=== PATIENT | female | born 1950 | race Caucasian/White ===

== ENCOUNTER 2016-08-02 05:57 | Day surgery (SDC) | payer OTHER, MEDICARE ==
[2016-07-30 10:22] VITALS: BMI 36.1
[2016-08-02] MEDS ORDERED: ePHEDrine SULFATE 50 MG/1 ML AMPULE ONE (07:16)
[2016-08-02] MEDS ORDERED: MIDAZOLAM HCL 2 MG/2 ML SINGLE DOSE VIAL ONE (07:17)
[2016-08-02] MEDS ORDERED: PROPOFOL 20 ML ONE ×2 (07:17)
[2016-08-02] MEDS ORDERED: ROCURONIUM BROMIDE 50 MG/5 ML VIAL ONE ×2 (07:17)
[2016-08-02] MEDS ORDERED: ceFAZolin SODIUM 1 GM VIAL ONE (07:22)
[2016-08-02] MEDS ORDERED: LIDOCAINE HCL 1%, 10 MG/ML (20ML VIAL) ONE (07:23)
[2016-08-02] MEDS ORDERED: BACITRACIN 30 GM TUBE TOPICAL OINTMENT ONE (07:23)
[2016-08-02] MEDS ORDERED: GENTAMICIN SO4 80 MG/2 ML VIAL ONE (07:23)
[2016-08-02] MEDS ORDERED: LIDOCAINE 1%-EPI 1:100,000 30 ML MDV IJ ONE (07:23)
[2016-08-02] MEDS ORDERED: EPINEPHrine/PF 1 MG/1 ML (1:1,000) AMPULE ONE (07:24)
[2016-08-02] MEDS ORDERED: GUM MASTIC/STORAX/MSAL/ALCOHOL 1 DRP DROPSBTL MC ONE (07:24)
[2016-08-02] MEDS ORDERED: HEPARIN NA (PORCINE) 5,000 UNITS/ML 1ML VIAL ONE (07:29)
[2016-08-02] MEDS ORDERED: SCOPOLAMINE HYDROBROMIDE 1 PATCH PATCH.TD72 ONE (07:29)
[2016-08-02] MEDS ORDERED: LIDOCAINE 1%/EPI 1:100000 (50 ML MULTI DOSE VIAL) INF ONE (08:25)
[2016-08-02] MEDS ORDERED: PROMETHAZINE HCL 25 MG/1 ML VIAL IVPUSH PRN (09:01)
[2016-08-02] MEDS ORDERED: ONDANSETRON 4 MG/2 ML VIAL IVPUSH PRN (09:01)
[2016-08-02] MEDS ORDERED: oxyCODONE HCL 5 MG TABLET PO PRN (09:01)
[2016-08-02] MEDS ORDERED: LACTATED RINGERS SOLUTION 1,000 ML IV SCH (09:15)
[2016-08-02] MEDS ORDERED: HYDROmorphone HCL/PF 1 MG/ML VIAL (FOR PYXIS CHARGING ONLY) ONE (09:26)
[2016-08-02] MEDS ORDERED: NEOSTIGMINE METHYLSULFATE 0.5 MG/ML - 10 ML MDV ONE (09:42)
--- NOTE | 2016-08-02 09:56 | OP ---
Operative Note - Note: Operative Date: 08/02/16 Pre-Operative Diagnosis: hx of right breast cancer Operation: right breast tissue lab director removal, right breast implant placement , bilateral breast reconstruction revision with subcutaneous tissue transfer, and left breast capsulorrophy Implants: Silicone implant on right breast Post-Operative Diagnosis: Same as Pre-op Surgeon: Cleveland Hernandez Delicatessen Slicer: Momo Bess Anesthesia: General Specimens Removed: right breast tissue lab director Estimated Blood Loss (mls): 50 Drains & Tubes with Location: none
[2016-08-02 11:44] VITALS: TEMP 98.2
[2016-08-02] MEDS ORDERED: ACETAMINOPHEN INJECTION 100 ML IVPB ONE (11:45)
[2016-08-02 12:48] VITALS: BP 137/72; PULSE 96
[2016-08-02] MEDS ORDERED: ACETAMINOPHEN 1000 MG/100 ML VIAL (NON FORMULARY) IVPB ONE (12:53)
--- NOTE | 2016-08-02 16:42 | OP ---
DATE OF OPERATION: 08/02/2016 SURGEON: Rosie Hernandez MD HAND COPER: JORDANA Rubin PREOPERATIVE DIAGNOSIS: Bilateral acquired chest wall deformity status post bilateral mastectomy. POSTOPERATIVE DIAGNOSIS: Bilateral acquired chest wall deformity status post bilateral mastectomy. OPERATIVE PROCEDURE: 1. Right breast reconstruction with other technique. 2. Left breast reconstruction with other technique. 3. Capsulotomy, removal of right breast implant. 4. Placement of reconstructive right breast implant. 5. Left breast revision with capsulorraphy. OPERATIVE INDICATIONS: The patient is a woman who underwent bilateral mastectomy with cancer of the breast. The risks and benefits surgical versus nonsurgical, alternatives as well as the material complications of the procedures above were discussed with the patient on multiple occasions. She agreed to the planned procedure. OPERATIVE PROCEDURE IN DETAIL: The patient was taken to the operating room, and after induction of general anesthesia in supine position, both arms were extended and padded. Venodyne boots were placed. The patient had a history of clotting and was given 5000 units of subcutaneous heparin in the holding area preoperatively. After prepping and draping in the usual fashion for breast surgery and reconstruction, attention was turned to the mastectomy scars. The mastectomy scars were injected with 1% local lidocaine anesthesia with 1:100,000 epinephrine and then after allowing topical anesthesia and hemostasis, attention was turned to the incision. An incision was made in the right breast scar towards the axilla in order to avoid the central portion of the breast from the primary mastectomy. This incision was made through the skin down through the subcutaneous tissues into the deep tissues of the lateral chest wall. Upon opening the lateral chest wall, the lateral portion of the right breast pocket was visualized. The capsule was seen and then I performed a capsulotomy opening the capsule and removing the implant. This implant was sent for pathologic diagnosis. At this point, attention was turned to the opposite breast. An incision was made in the left breast mastectomy scar. After the incision was made in the left breast mastectomy scar, it was carried down through the skin to the subcutaneous tissues down to underlying capsule of the implant on the left side. I then performed a capsulotomy on the left breast opening the capsule itself and retracting the implant, which had been placed to the medial side. Because of the implant malposition, the lateral portion of the capsule required capsulorraphy. After 1% local lidocaine anesthesia was injected into the capsule on the lateral gutter using a No. 1 V-Lock suture in nonabsorbable running fashion, a capsulorraphy was carried out tacking the lateral portion of the gutter to itself on the chest wall. This was carried out in 3 layer fashion up and down the lateral gutter and closed off the lateral pocket. Copious irrigation of the deep pocket with triple antibiotic solution keeping the implant in place was carried out. Good shape and contour was seen in a sitting position, and at this point, the capsule was closed using 2-0 PDS sutures in interrupted fashion on the left breast. The abdomen flank region, which had been prepped and draped preoperatively, was now injected with 1% local lidocaine anesthesia, and attention was turned to the incision. Incision was made into the lateral flank and abdominal wall down through the subcutaneous tissue to the deepest layer above the fascia. Tissue was then harvested from both sides of the flank area for reconstructive purposes. The tissue was transferred to the back table, prepared, washed, cleansed, and ready for reconstructive purposes. The tissue was then placed into the central, superior, medial, inferior, and lateral portions of the right breast and then independently placed into the medial, superior portions of the left breast. After this was accomplished, the wounds were copiously irrigated on the right breast with triple antibiotic solution and a Natrelle Inspira 450-mL silicone gel implant in order to match the opposite breast was placed into the right breast pocket. This was placed using the Goodman funnel and showed good shape and contour, again, in the sitting position. The wound was then closed with interrupted 2-0 PDS sutures in a watertight fashion. Skin and subcutaneous tissue was closed independently with 2-0 PDS, 3-0 PDS, and 4-0 V-Lock suture in a running fashion. All wounds were dressed sterilely with Dermabond because of the tape allergy, and fluff dressing, combines, and a Surgi-Bra. She tolerated the procedure well. She was awakened, extubated, and transferred to the recovery room in satisfactory condition. ROSIE HERNANDEZ M.D. [id number]
--- NOTE | 2016-08-03 16:29 | PATH ---
Surgical Pathology Report Patient Name: JESIKA ALANIS Med. Rec. #: [id number] /Age/Gender: 1950 (Age: 66) / F Account: [id number] Location: [facility] Taken: 08/02/2016 Received: 08/02/2016 Reported: 08/03/2016 Physicians: Cleveland Hernandez Specimen(s) Received RIGHT BREAST TISSUE STRAWHAT BLOCKING OPERATOR Clinical History Breast cancer Final Diagnosis TISSUE STRAWHAT BLOCKING OPERATOR, RIGHT BREAST, REMOVAL: TISSUE STRAWHAT BLOCKING OPERATOR, DESCRIBED (GROSS EXAMINATION ONLY). Electronically Signed Mera Arcos M.D. Gross Description Received in formalin, labeled "right breast tissue oxygen equipment preparer," is a 14.0 x 12.0 x 3.0 cm zheng, irregular device, consistent with a breast tissue oxygen equipment preparer. No soft tissue is present. No sections are submitted, gross only. /08/02/2016 saudi08/02/2016
== END 2016-08-02 12:40 | disposition home or self-care (01) ==
LOC: FASU 05:57
PROVIDERS: ATTEND Plastic Surgery
PROC: 0HRT0JZ Replacement of Right Breast with Synthetic Substitute, Open Approach (ICD-10-PCS; 2016-08-02)
PROC: 0HRV07Z Replacement of Bilateral Breast with Autologous Tissue Substitute, Open Approach (ICD-10-PCS; principal; 2016-08-02 08:25)
PROC: 0HNU0ZZ Release Left Breast, Open Approach (ICD-10-PCS; 2016-08-02 08:25)
PROC: 0HPT0JZ Removal of Synthetic Substitute from Right Breast, Open Approach (ICD-10-PCS; 2016-08-02 08:25)
DX: M95.4 Acquired deformity of chest and rib (principal); Z90.13 Acquired absence of bilateral breasts and nipples; Z85.3 Personal history of malignant neoplasm of breast
CPT/HCPCS: 88300-TC; J1644

== ENCOUNTER 2017-03-07 06:04 | Day surgery (SDC) | payer OTHER, MEDICARE ==
[2017-03-05 16:47] VITALS: BMI 36.8
[2017-03-07] MEDS ORDERED: PROPOFOL 20 ML ONE ×2 (07:24)
[2017-03-07] MEDS ORDERED: ePHEDrine SULFATE 50 MG/1 ML AMPULE ONE (07:24)
[2017-03-07] MEDS ORDERED: SUCCINYLCHOLINE CHLORIDE 200 MG/10 ML VIAL ONE (07:24)
[2017-03-07] MEDS ORDERED: MIDAZOLAM HCL 2 MG/2 ML SINGLE DOSE VIAL ONE (07:25)
[2017-03-07] MEDS ORDERED: LIDOCAINE HCL 1%, 10 MG/ML (20ML VIAL) ONE (07:33)
[2017-03-07] MEDS ORDERED: BUPIVACAINE HCL/PF 2.5 MG/ML - 30 ML VIAL IJ ONE (07:33)
[2017-03-07] MEDS ORDERED: GENTAMICIN SO4 80 MG/2 ML VIAL ONE (07:34)
[2017-03-07] MEDS ORDERED: EPINEPHrine/PF 1 MG/1 ML (1:1,000) AMPULE ONE (07:34)
[2017-03-07] MEDS ORDERED: CLINDAMYCIN PHOSPHATE 600 MG/4 ML VIAL ONE ×2 (07:35→08:11)
[2017-03-07] MEDS ORDERED: DEXAMETHASONE SOD PHOSPHATE 4 MG/1 ML VIAL ONE (08:11)
[2017-03-07] MEDS ORDERED: ONDANSETRON 4 MG/2 ML VIAL ONE (08:11)
[2017-03-07] MEDS ORDERED: LIDOCAINE 1%/EPI 1:100000 (20 ML MULTI DOSE VIAL) IJ ONE ×2 (08:22)
[2017-03-07] MEDS ORDERED: LIDOCAINE 1%/EPI 1:100000 (20 ML MULTI DOSE VIAL) ONE (08:24)
[2017-03-07] MEDS ORDERED: ONDANSETRON 4 MG/2 ML VIAL IVPUSH PRN (10:03)
[2017-03-07] MEDS ORDERED: PROMETHAZINE HCL 25 MG/1 ML VIAL IVPUSH PRN (10:03)
[2017-03-07] MEDS ORDERED: LACTATED RINGERS SOLUTION 1,000 ML IV SCH (10:15)
[2017-03-07 12:03] VITALS: TEMP 97.9
[2017-03-07] MEDS ORDERED: oxyCODONE HCL 5 MG TABLET ONE (12:30)
[2017-03-07] MEDS ORDERED: oxyCODONE HCL 5 MG TABLET PO PRN (13:20)
[2017-03-07 13:31] VITALS: BP 147/88; PULSE 86
--- NOTE | 2017-03-08 13:23 | OP ---
DATE OF OPERATION: 03/07/2017 SURGEON: Rosie Hernandez MD LEARNING DEVELOPMENT SPECIALIST SURGEON: Momo Bess PA-C PREOPERATIVE DIAGNOSES: 1. Bilateral acquired chest wall deformities status post bilateral mastectomies. 2. Personal history of breast carcinoma. 3. Asymmetry of the reconstructed chest wall. 4. Mechanical complication of breast imlants. POSTOPERATIVE DIAGNOSES: 1. Bilateral acquired chest wall deformities status post bilateral mastectomies. 2. Personal history of breast carcinoma. 3. Asymmetry of the reconstructed chest wall. 4. Mechanical complication of breast imlants. OPERATIVE PROCEDURES: 1. Right breast reconstruction with other technique. 2. Left breast reconstruction with capsulorrhaphy and tissue rearrangement. 3. Right breast capsulotomy and implant removal. 4. Right breast placement of breast implant for reconstruction. OPERATIVE INDICATIONS: Patient is a woman who underwent bilateral mastectomy for breast cancer risks and reasons. The risks and benefits, surgical versus nonsurgical alternatives, as well as the material complications of this procedure were described to the patient on multiple occasions preoperatively. She agreed to the planned procedure. OPERATIVE PROCEDURE IN DETAIL: Patient was take to the operating room, and after the induction of general anesthesia in the supine position, both arms were extended and padded, Venodyne boots were placed. Attention was then turned to the mastectomy scars. The previous mastectomy scars were seen on the right breast. Decision was made at this point, because of the previous radiation indication of therapy, that an inframammary incision was planned and discussed with the patient preoperatively. This was marked, measured, and injected with 1% local lidocaine anesthesia with 1:200,000 epinephrine. Also, left breast mastectomy scar was outlined for surgical excision of the lateral portion of the breast tissue and extending towards the axilla. This was also injected with 1% local lidocaine anesthesia with 1:200,000 epinephrine. Areas were planned in the lateral thigh for harvest of tissue for reconstructive purposes. These were also injected. At this point, attention was then turned to the right breast. An incision was made approximately 5 cm long in the inframammary fold, carried down through the skin and subcutaneous tissue, down to the underlying capsule of the breast implant. The capsule was then opened along the course of the incision, and the implant previously was removed and sent for pathologic diagnosis. After copious irrigation of the wound with triple antibiotic solution, the pocket was expanded to accept the new implant for reconstructive purposes, and the capsulorrhaphy on the right breast was carried out using contraction techniques. Attention was then turned to the left breast. The elliptical excision of breast and sidewall tissue was carried out. The tissue was again sent for pathologic diagnosis to rule out breast cancer. The dissection was then carried down through the skin to the subcutaneous tissue, from the subcutaneous tissue down to the capsule , and a capsulotomy was performed on the left breast. Capsulorrhaphy was carried out using contraction and sutures with 2-0 PDS sutures in interrupted and running fashion. At this point, the implant ws moved to the medial portion of the pocket, and good symmetry was seen. The wounds were copiously irrigated with triple antibiotic solution and then closed using 2-0 PDS in interrupted fashion, medializing the capsule and implant to a more medial position to correct the deformity. Attention was then turned back to the right breast. An incision was made at the lateral flanks in order to harvest reconstructive tissue. Incision was made down through the skin to the deep tissue down to underlying fascia of the lateral leg, and then, tissue was harvested from these areas and transferred to the back table. This was washed, cleansed, and prepared in order to reconstruct the breast, and then transferred to the right breast in superior, medial, central, and inferior portions of the right breast. An implant was chosen for this reconstructive procedure on the right breast at this point, and a NatGENIAC [facility] Cohesive Breast Implant, Style SCF, 605 mL was placed into the right breast pocket. Pocket then showed good contour, and it was closed after copious irrigation with 2-0 PDS in an interrupted and running fashion. The skin and subcutaneous tissue on both sides were closed with 3-0 Monocryl in interrupted sutures as was the donor site on the leg. A running subcuticular suture with 4-0 Biosyn suture was placed on both sides, and then, the wounds were dressed with Dermabond dressings. She was placed into a Surgi-Bra with a compressive dressing. She tolerated the procedure well. She was awakened, extubated, and transferred to the recovery room in satisfactory condition. ROSIE HERNANDEZ M.D. [id number]
--- NOTE | 2017-03-12 16:30 | PATH ---
Surgical Pathology Report Patient Name: JESIKA ALANIS [facility]. Rec. #: [id number] /Age/Gender: 1950 (Age: 66) / F Account: [id number] Location: [facility] Taken: 03/07/2017 Received: 03/07/2017 Reported: 03/12/2017 Physicians: Cleveland Hernandez Specimen(s) Received A: RIGHT BREAST EXPLANT B: LEFT BREAST TISSUE Clinical History None given Final Diagnosis A. RIGHT BREAST, EXPLANT: IMPLANT, DESCRIBED (GROSS EXAMINATION ONLY). B. BREAST TISSUE, LEFT, EXCISION: SKIN AND FIBROADIPOSE TISSUE WITH NO PATHOLOGIC FINDINGS. Electronically Signed Mera Arcos M.D. Gross Description A. Received fresh labeled "right breast explant," is a 13 cm in diameter x 4 cm in depth, clear breast implant. No soft tissue is present. No sections are submitted, gross only. B. Received in formalin labeled "left breast tissue," is a 9.0 x 2.3 cm zheng, elliptical, unoriented portion of skin excised to depth of 2.2 cm. The epidermal surface is unremarkable. Sectioning reveals unremarkable yellow, lobulated adipose tissue. No masses are identified. Dining Room Helper sections are submitted in one cassette. 03/08/201703/08/2017
== END 2017-03-07 13:20 | disposition home or self-care (01) ==
LOC: FASU 06:04
PROVIDERS: ATTEND Plastic Surgery
PROC: 0HUT0JZ Supplement Right Breast with Synthetic Substitute, Open Approach (ICD-10-PCS; 2017-03-07)
PROC: 0HPT0JZ Removal of Synthetic Substitute from Right Breast, Open Approach (ICD-10-PCS; 2017-03-07)
PROC: 0HRT0JZ Replacement of Right Breast with Synthetic Substitute, Open Approach (ICD-10-PCS; 2017-03-07)
PROC: 0HRV07Z Replacement of Bilateral Breast with Autologous Tissue Substitute, Open Approach (ICD-10-PCS; principal; 2017-03-07 08:22)
PROC: 0HNT0ZZ Release Right Breast, Open Approach (ICD-10-PCS; 2017-03-07 08:22)
DX: M95.4 Acquired deformity of chest and rib (principal); Z90.13 Acquired absence of bilateral breasts and nipples; Z85.3 Personal history of malignant neoplasm of breast; N65.1 Disproportion of reconstructed breast; T85.41XA Breakdown (mechanical) of breast prosthesis and implant, initial encounter; Y83.8 Other surgical procedures as the cause of abnormal reaction of the patient, or of later complication, without mention of misadventure at the time of the procedure; Y92.89 Other specified places as the place of occurrence of the external cause
CPT/HCPCS: 88300-TC; 88304-TC; 94760